=== PATIENT | female | born 1990 | race African-American/Black ===

== ENCOUNTER 2021-11-28 08:01 | Emergency (ER) | payer OTHER, SELFPAY | END 2021-11-28 09:45 | disposition home or self-care (01) | LOC: ERS 08:01 | DX: S93.401A Sprain of unspecified ligament of right ankle, initial encounter (principal); R73.03 Prediabetes; V49.9XXA Car occupant (driver) (passenger) injured in unspecified traffic accident, initial encounter; Z79.899 Other long term (current) drug therapy ==

== ENCOUNTER 2025-06-16 00:02 | Emergency (ER) | payer OTHER | END 2025-06-16 02:22 | disposition left against medical advice (07) | LOC: ERS 00:02 | DX: Z53.21 Procedure and treatment not carried out due to patient leaving prior to being seen by health care provider (principal) ==